=== PATIENT | female | born 1995 | race Asian ===

== ENCOUNTER 2024-01-14 19:51 | Emergency (ER) | payer BC, SELFPAY ==
[2024-01-14] VITALS (29 sets, daily range): BP systolic 94–133; BP diastolic 78–99; PULSE 75–98; RESP 10–26; TEMP 36.6; O2SAT 96–100
--- NOTE | 2024-01-14 20:15 | DI.CT_ITS ---
Exam(s) CT RENAL COLIC WO EXAM: CT RENAL COLIC WO CLINICAL HISTORY: right flank pain. TECHNIQUE: Imaging Protocol: Axial computed tomography images with coronal and sagittal reformatted images were created and reviewed CONTRAST MATERIAL: Intravenous: none Oral: None COMPARISON: No exams were available for comparison FINDINGS: VISUALIZED LUNG BASES: No nodules nor pleural effusions evident. ABDOMEN: There is no ascites. LIVER: There are no obvious focal hepatic lesions evident of this noninfused study. GALLBLADDER/BILIARY: No obvious gallbladder pathology. CBD is not dilated. PANCREAS: No evidence of pancreatic mass nor dilatation of the pancreatic duct. SPLEEN: Spleen is not enlarged. No obvious intrasplenic lesions. ADRENALS: There are no significant adrenal masses. KIDNEYS:There is bilateral nephrolithiasis. Multiple nonobstructing calculi are seen in the lower po le calyx of the left kidney. There is also a benign cyst in the lateral cortex of the left kidney me asuring 1.5 cm. No solid renal masses. In the opposite-right kidney there are multiple calculi also noted, most prominent in the lower half of the kidney especially inferior pole calyx. There is some perinephric stranding. There is a 2 millimeter calculus at the right ureterovesical junction. Ther e is larger 4 millimeter calcification of of this level in the distal right ureter. ABDOMINAL AORTA: Abdominal aorta is not enlarged. LYMPH NODES: There is no retroperitoneal nor paraaortic adenopathy. ABDOMINAL WALL: No evidence of significant anterior abdominal wall nor inguinal hernia. GI: There is no evidence of bowel obstruction, free air, nor abscess. PELVIS: LYMPH NODES: There is no intrapelvic nor inguinal adenopathy. GI: No evidence of appendicitis.No evidence of sigmoid diverticulitis. URINARY BLADDER: Calculus at the right ureterovesical junction measuring 2 mm. REPRODUCTIVE: Uterus and adnexal regions unremarkable. No free fluid OSSEOUS: No significant osseous lesions. No fractures. IMPRESSION: 1. There is bilateral nephrolithiasis. 2. There is mild right-sided hydronephrosis which is due to calculi in the lower right ureter measuri ng 2 and 4 mm, with the smaller calculus located at the right ureterovesical junction and larger calc ulus above this level in the lower right ureter. Mild dilatation of the right collecting system abov e this level as well as unilateral right perinephric stranding. There are no calculi in the left ure ter. RADIATION DOSE DELIVERED: Total DLP DATA REPOSITORY: All CT scans at this facility are submitted to the National Radiology Data Registry (NRDR) Dose Index Registry (DIR) with the [employer] [place] [employer] [employer] (ACR). RADIATION OPTIMIZATION: All CT scans at this facility use at least one of these dose optimization te chniques: automated exposure control; mA and/or kV adjustment per patient size (includes targeted exa ms where dose is matched to clinical indication); or iterative reconstruction.
[2024-01-14 20:27] LABS: Bilirubin Negative (Negative); Blood Moderate (Negative); Clarity Sl Cloudy (Clear); Glucose Negative (Negative); Ketones 40 mg/dL (Negative); Leukocyte Esterase Negative (Negative); Nitrite Positive (Negative); Specific Gravity 1.025 (1.005-1.025); Urobilinogen 0.2 mg/dL (Up to 0.2)
--- NOTE | 2024-01-14 20:31 | ED.GENADUL_ITS ---
Discharge Plan Disposition Condition: Serious Discharge Details Chief Complaint: Urinary Clinical Impression: Kidney stone, UTI (urinary tract infection) Primary Care Provider: Claudette,Local ED Provider: Denzel Diego Home Meds and New Rx's Prescriptions: No Action fexofenadine [Fannie Allergy] 60 mg tablet 60 mg PO DAILY HPI General Mode of arrival: ambulatory . Date/Time Provider Initiated Documentation: 01/14/24 19:52 . Limitations to Documentation: no limitations . Information obtained by: patient . History of Present Illness 28 year old F presents to the emergency department with the chief complaint of right flank pain, described as moderate, Quality is described as sharp, Patient reports no radiation. Patient started experiencing this hour(s) (4) and it has been constant. No relieving factors improve symptom(s), No exacerbating factors reported . Patient notes nausea/vomiting; denies chest pain and shortness of breath. Patient did receive the following treatments prior to arrival, none Related Data Home Medications ?Medication ?Instructions ?Recorded ?Confirmed fexofenadine 60 mg tablet (Fannie 60 mg PO DAILY 01/14/24 01/14/24 Allergy) Allergies Allergy/AdvReac Type Severity Reaction Status Date / Time Penicillins Allergy Severe Anaphylaxis Verified 01/14/24 20:07 General Stated Complaint: Urinary AGATHA: 3 Review of Systems All systems reviewed & are unremarkable except as noted in HPI and below Constitutional Constitutional: Denies chills, Denies fever(s) and Denies weakness Cardiovascular Cardiovascular: Denies chest pain and Denies dyspnea Respiratory Respiratory: Denies cough and Denies dyspnea Gastrointestinal Gastrointestinal: Reports nausea and Reports vomiting Genitourinary Genitourinary: Reports urinary urgency Musculoskeletal Musculoskeletal: Denies joint swelling Neurologic Neurologic: Denies weakness Exam Const Orientation: alert [facility] Head: normal to inspection Ears: external ears normal General nose exam: external nose normal Mouth: moist mucous membranes Eyes General: appearance normal, both eyes and all related structures Neck Neck: normal visual inspection Resp Effort & Inspection: normal respiratory effort and able to speak in complete sentences Cardio Rate: regular rate GI Palpation: soft and nontender General: No CVA tenderness Skin General skin exam: no rashes or lesions noted Neuro General: patient alert and patient oriented x3 Extrem General: normal to inspection Psych Mental Status: mental status grossly normal Course Vital Signs Vital signs: Vital Signs Temperature 36.6 C 01/14/24 20:04 Pulse 94 H 01/14/24 20:04 Respiratory Rate 20 01/14/24 20:04 Blood Pressure 133/99 H 01/14/24 20:04 Pulse Oximetry 100 01/14/24 20:04 Temperature 36.6 C 01/14/24 20:04 Temperature Source Temporal Artery Scan 01/14/24 20:04 Pulse 94 H 01/14/24 20:04 Respiratory Rate 20 01/14/24 20:04 Respiratory Effort Normal, Non-Labored 01/14/24 20:16 Blood Pressure 133/99 H 01/14/24 20:04 Blood Pressure Position Sitting 01/14/24 20:04 Pulse Oximetry 100 01/14/24 20:04 Oxygen Delivery Method Room Air 01/14/24 20:04 Oxygen Flow Rate 0 01/14/24 20:04 Pain Level 7 01/14/24 20:17 Lab/Test Results Lab/Test Results: Laboratory Tests Range/Units 01/14/24 20:09 WBC Cancelled RBC Cancelled Hgb Cancelled Hct Cancelled MCV Cancelled MCH Cancelled MCHC Cancelled RDW Cancelled Plt Count Cancelled MPV Cancelled Immature Gran % Cancelled Neutrophils % Cancelled Band Neutrophils % Cancelled Lymphocytes % Cancelled Atypical Lymphs % Cancelled Monocytes % Cancelled Eosinophils % Cancelled Basophils % Cancelled Metamyelocytes % Cancelled Myelocytes % Cancelled Promyelocytes % Cancelled Other Cells % Cancelled Nucleated RBC % Cancelled Absolute Neutrophils Cancelled Absolute Lymphocytes Cancelled Absolute Monocytes Cancelled Absolute Eosinophils Cancelled Absolute Basophils Cancelled RBC Morphology Cancelled Polychromasia Cancelled Hypochromasia Cancelled Poikilocytosis Cancelled Basophilic Stippling Cancelled Anisocytosis Cancelled Microcytosis Cancelled Macrocytosis Cancelled Spherocytes Cancelled Tear Drop Cells Cancelled Ovalocytes Cancelled Stomatocytes Cancelled [place] Bodies Cancelled Jd Cells/Echinocytes Cancelled Acanthocytes (Spur) Cancelled Schistocytes Cancelled Sodium Cancelled Potassium Cancelled Chloride Cancelled Carbon Dioxide Cancelled Anion Gap Cancelled BUN Cancelled Creatinine Cancelled Est GFR (CKD-EPI 2020) Cancelled Glucose Cancelled Calcium Cancelled Magnesium Cancelled Total Bilirubin Cancelled AST Cancelled ALT Cancelled Alkaline Phosphatase Cancelled Total Protein Cancelled Albumin Cancelled Lipase Cancelled POC- Test(urine) Negative Medical Decision Making 28-year-old female who states she has a history of kidney stones comes in with acute onset right flank pain starting around 4 PM and nausea vomiting. She has no fevers, has had some urinary urgency since this started. She denies any chest pain, difficulty breathing. She is very anxious on exam, she localizes the pain to the right oblique and states that intermittently radiates to the right lower abdomen. She has no abdominal tenderness currently and no CVA tenderness. Discussed with her that I would like to do blood work but she is adamantly against doing blood work currently she gets too anxious with blood draws needlesticks. Will trial p.o. ibuprofen and Zofran for her symptoms and also Ativan for anxiety. And obtain UA along with CT renal colic. Given lack of abdominal tenderness doubt IC such as appendicitis. Patient less anxious and pain is improved, she still some mild right lower oblique area discomfort. Her urine does show positive nitrates, she is well to do blood work now we will check a CBC a CMP and a procalcitonin and IV fluids. CT pending CT shows right perinephric stranding with hydronephrosis and 2 kidney stones 1 to 2 mm and 1 to 4 mm in the right distal ureter approximately 2 cm cephalad to the right UVJ. She is hemodynamically stable, discussed results with patient and given she has an infected stone so she needs to be hospitalized. Will see if Dr. Hannah is available to potentially help manage these if she doesn't pass them on her own Dr. 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 [place] if [place] have [place] pt signed out to oncoming provider pending [place] [facility] Differential Diagnosis Differential Diagnosis: kidney stone, uti Imaging Data Radiologic Study: Attestation: I personally reviewed and interpreted this imaging study as follows: Imaging: CT Scan Radiologist's impression: IMPRESSION: 1. Right perinephric stranding. Right hydronephrosis with closely- adjacent 2 mm and 4 mm calcified stones in the distal right ureter approximately 2 cm cephalad to the right UVJ. Additional third calcified stone (2 mm diameter) at the right UVJ. 2. Bilateral non-obstructing calcified renal stones. Lab Data Lab results reviewed: Yes I reviewed the patient's lab results. Quality:SDOH Health Related Social Needs: No Data to Display [facility] All Active Problems (Updated 01/14/24 @ 22:55 by Denzel Diego MD) UTI (urinary tract infection) (Acute) Kidney stone (Chronic) Social History Smoking/Tobacco Use Status: Never Smoking risk assessment performed?: Yes Alcohol Intake: never Drug use: Never Substance use type: does not use Housing: condominium Do you feel safe at home: Yes Do you feel safe in your relationship?: Yes
[2024-01-14 20:39] LABS: Bacteria Moderate HPF (Negative); C & S Indicated? No/Sq. Contamination; Casts Negative LPF (Negative); Crystals Negative HPF (Negative); Epithelial Cells Many HPF (Negative); Mucus Negative (Negative)
[2024-01-14] MEDS: Ondansetron O.D.T. 4 MG TABEF PO (20:41)
[2024-01-14] MEDS: LORazepam 1 MG TAB PO (20:41)
[2024-01-14] MEDS: Ibuprofen 600 MG TAB PO (20:41)
[2024-01-14 21:55] LABS: Abs Immature Grans 0.06 10^3/uL (0.0-0.06); Absolute Eosinophil Count 0.01 10^3/uL (0.0-0.7); Absolute Lymphocyte Count 0.25 10^3/uL (1.2-3.4); Absolute Neutrophil Count 13.16 10^3/uL (1.2-6.7); Basophils % 0.4 %; Eosinophils % 0.1 %; HGB 14.2 g/dL (11.2-15.7); Immature Grans % 0.4 %; Lymphocytes % 1.8 %; MCH 29.3 pg (27.0-33.0); MCHC 33.8 % (32.0-36.0); MCV 87 fL (80-95); MPV 9.7 fL (8.0-11.0); Monocytes % 2.2 %; Neutrophils % 95.1 %; Platelet Count 198 10^3/uL (130-400); RBC 4.85 10^6/uL (3.93-5.22); RDW 11.9 % (11.7-14.6); RDW-SD 37.8 fL; WBC 13.84 10^3/uL (4.4-10.8)
[2024-01-14 21:58] LABS: Absolute Basophil Count 0.06 10^3/uL (0.0-0.2)
[2024-01-14] MEDS: levoFLOXacin 750 MG/150 ML BAG 100 MG IVPB (21:58)
[2024-01-14] MEDS: Normal Saline 1,000 ML 1000 ML IV (21:59)
[2024-01-14 22:08] LABS: ALT 19 U/L (14-59); AST 16 U/L (15-37); Albumin 4.2 g/dL (3.4-5.0); Alkaline Phosphatase 80 U/L (46-116); Anion Gap 10.2 mmol/L (3-11); BUN 10 mg/dL (7-18); Bilirubin, Total 0.94 mg/dL (0.2-1.0); CO2 25.8 mmol/L (21.0-32.0); CREATININE 1.1 mg/dL (0.55-1.02); Calcium 9.2 mg/dL (8.5-10.1); Chloride 103 mmol/L (98-107); Estimated GFR 69.32 (mL/min/1.73m2); Glucose 111 mg/dL (74-106); Magnesium 1.6 mg/dL (1.8-2.4); Potassium 3.4 mmol/L (3.5-5.1); Sodium 139 mmol/L (136-145); Total Protein 7.7 g/dL (6.4-8.2)
[2024-01-14] MEDS: HYDROmorphone 2 MG/ML SYR 0.5 MG IVP (22:09)
[2024-01-14 22:24] LABS: Procalcitonin 7.8 ng/mL
--- NOTE | 2024-01-14 22:27 | DI.VRAD_ITS ---
PROCEDURE INFORMATION: Exam: CT Abdomen And Pelvis Without Contrast Exam date and time: 01/14/2024 9:21 PM Age: 28 years old Clinical indication: Right flank pain TECHNIQUE: Imaging protocol: Computed tomography of the abdomen and pelvis without contrast. COMPARISON: No relevant prior studies available. FINDINGS: Lungs: No acute infiltrate in either lung base. Liver: Normal. No mass. Gallbladder and biliary ducts: Normal. No calcified stones. No ductal dilation. Pancreas: Normal. No ductal dilation. Spleen: Normal. No splenomegaly. Adrenal glands: Normal. No mass. Kidneys and ureters: Right perinephric stranding. Right hydronephrosis with closely-adjacent 2 mm and 4 mm calcified stones in the distal right ureter approximately 2 cm cephalad to the right UVJ. Additional third calcified stone (2 mm diameter) at the right UVJ. Bilateral non-obstructing calcified renal stones. No left hydronephrosis. Lateral left renal cortical cyst. Stomach and bowel: Unremarkable. No obstruction. No mucosal thickening. Appendix: Normal appendix. Intraperitoneal space: No free air. No significant fluid collection. Vasculature: The abdominal aorta is normal in caliber without aneurysm. Lymph nodes: No enlarged lymph nodes. Urinary bladder: Unremarkable as visualized. Reproductive: Unremarkable as visualized. Bones/joints: Unremarkable. No acute fracture. Soft tissues: Small fat-containing umbilical hernia. IMPRESSION: 1. Right perinephric stranding. Right hydronephrosis with closely-adjacent 2 mm and 4 mm calcified stones in the distal right ureter approximately 2 cm cephalad to the right UVJ. Additional third calcified stone (2 mm diameter) at the right UVJ. 2. Bilateral non-obstructing calcified renal stones. Dictated and Authenticated by: Nikolai Sommers MD. Ordering:MELIDA Mahoney MD
--- NOTE | 2024-01-14 23:07 | W.EDPROG ---
Date of service: 01/14/24 Time of Service: 23:07 Medical Decision Making This patient was signed out to me. Please see previous notes for H&P and initial eval. in brief, 28yo previously healthy female presenting with flank pain. Workup suggestive of infected kidney stone; UA with 5-10 WBC +nitrates, WBC 13, procal elevated at 7.8, CT with right hydronephrosis and stones in distal right ureter. SIRS + with HR in 90's and elevated white count. Anaphalyxis to cephalasporins so started on levofloxacin. Signed out pending transfer, awaiting callback from [facility] [place] [place] (no urology at [facility] currently). Spoke with urology [facility] [place] [place] Dr. Mclean; pt accepted for transfer. Transferred via [facility]. Quality:[facility] Health Related Social Needs: No Data to Display Sign Out Sign Out Data: Sign Out Comment: infected kidney stone, hemodynamically stable. levofloxacin given, pending call back from [facility] [place] for potential transfer. Last updated by Denzel Diego MD at 01/14/24 23:06 Discharge Plan Disposition Patient Disposition: Transfer-Acute Inpatient Care Specific Acute In Facility: [facility] Condition: Serious Condition: Serious Discharge Details Chief Complaint: Urinary Clinical Impression: Kidney stone, UTI (urinary tract infection) Primary Care Provider: Claudette,Local ED Provider: Brianne Rodríguez Home Meds and New Rx's Prescriptions: No Action fexofenadine [Fannie Allergy] 60 mg tablet 60 mg PO DAILY
[2024-01-15] VITALS (32 sets, daily range): BP systolic 131–152; BP diastolic 86–103; PULSE 80–124; RESP 11–30
[2024-01-15] MEDS: HYDROmorphone 2 MG/ML SYR 0.5 MG IVP ×3 (00:16→03:15)
[2024-01-15] MEDS: Ondansetron 4 MG/2 ML VIAL IVP ×2 (00:16→03:15)
--- NOTE | 2024-01-17 08:08 | NUR.NOTE ---
Accessed Pt chart to see if Pt was prescribed any medical Nursing Note:
--- NOTE | 2024-01-17 08:10 | NUR.NOTE ---
Accessed Pt chart to see if Pt was prescribed any antibiotics during this visit. Realized Pt was transferred to [facility]. I faxed the specimen to [facility] so they can add it to the Pts chart.
== END 2024-01-15 03:21 | disposition short-term general hospital (02) ==
PROVIDERS: Emergency Medicine; Emergency Provider Student in an Organized Health Care Education/Training Program
DX: R10.31 Right lower quadrant pain (principal); N20.1 Calculus of ureter; R11.2 Nausea with vomiting, unspecified; R39.15 Urgency of urination; R30.0 Dysuria; N39.0 Urinary tract infection, site not specified; Z87.442 Personal history of urinary calculi
CPT/HCPCS: 00123; 36415; 80053; 81025; 83690; 84145; 96365; 96366; 96375; 96376; 99285; 74176; 81003; 81015; 83735; 85025; 87086; J1170; J1956; J2405

== ENCOUNTER 2024-02-02 12:26 | Day surgery (SDC) | payer BC, SELFPAY ==
[2024-02-02] VITALS (20 sets, daily range): BP systolic 98–129; BP diastolic 61–101; PULSE 75–109; RESP 13–22; TEMP 36–37.2; O2SAT 98–100; BMI 23.6
--- NOTE | 2024-02-02 14:03 | HPE_ITS ---
Date of service: 02/02/24 Time of Service: 14:04 Assessment and Plan Assessment and plan (1) Right distal ureteral calculus: Status: Acute Assessment and plan: We will plan for cystoscopy, removed her right ureteral stent, do a right retrograde pyelogram and then perform ureteroscopy and treatment of any remaining right ureteral stones. History of Present Illness History of Present Illness Chief Complaint: Right ureteral stones Narrative: This is a 28-year-old woman who does have a history of kidney stones. She passed a stone spontaneously about 10 years ago. She is not aware of a chemical analysis or composition of the stone. She presented to our emergency department about 2 weeks ago with an acute onset of right sided flank pain. She recalled that the pain was similar to her previous stone episode. She was seen in the emergency department and her CT sca n showed 2 distal right ureteral stones. Her urinalysis was concerning for an infection, so she was referred for an urgent stent that was placed at [facility]. Since that time, she has not had significant renal colic symptoms. She does have some stent discomfort with urinary frequency and urgency. She is not sure if she passed her stone. She is not having any fever or chills Her is here to help her while she is getting over this painful episode, but he is due to return to work in [place] next week. She is hoping that we may be able to address her ureteral stones sooner than later. There was a plan from the urology team at [facility] to perform ureteroscopy about 2 to 4 weeks after her stent placement, but she has not heard from them yet. She has no known metabolic issues such as gout or hyperparathyroidism. She has no known bleeding disorders. She has done well with anesthesia in the past. She believes she may have passed her stone since being seen in the office Review of Systems Narrative: No fevers or chills No vision change or dysphasia No diabetes or thyroid No shortness of breath, cough or hemoptysis No chest pain or palpitations No nausea, vomiting, hepatitis, ulcers, jaundice No seizures, strokes or peripheral neuropathy No bleeding disorders or anemia No gout PFSH All Active Problems (Updated 02/02/24 @ 13:41 by Codie Golden) Severe needle phobia (Acute) Right distal ureteral calculus (Acute) UTI (urinary tract infection) (Acute) Kidney stone (Chronic) Surgical History (Updated 02/02/24 @ 13:25 by Codie Golden) S/P [place]oscopy with ureteral stent [place] [facility] Social History Smoking/Tobacco Use Status: Never Smoking risk assessment performed?: Yes Alcohol Intake: never Drug use: Never Substance use type: does not use Housing: condominium Additional Social history: Unable to assess privately Meds Allergies and Home Medications Allergies Allergy/AdvReac Type Severity Reaction Status Date / Time Penicillins Allergy Severe Anaphylaxis Verified 01/31/24 10:53 Home Medications ?Medication ?Instructions ?Recorded ?Confirmed ?Type fexofenadine 60 mg tablet (Fannie 60 mg PO DAILY 01/14/24 02/02/24 History Allergy) alprazolam 0.25 mg tablet (Xanax) 0.25 - 0.5 mg (1 - 2 x 0.25 mg) PO 01/30/24 02/02/24 Rx TID PRN anxiety #12 tabs tamsulosin 0.4 mg capsule (Flomax) 0.4 mg PO QHS 01/31/24 02/02/24 History Exam Const General: cooperative, comfortable and anxious Neck Neck: supple Resp Effort & Inspection: normal respiratory effort Auscultation: clear to auscultation bilaterally Cardio Rate: regular rate Rhythm: regular rhythm GI Palpation: soft and no masses Neuro General: patient alert, patient awake and patient oriented x3 Results Last Vital Signs Temp 37.2 C 02/02/24 12:35 Pulse 109 H 02/02/24 12:35 Resp 16 02/02/24 12:35 BP 129/101 H 02/02/24 12:35 Pulse Ox 99 02/02/24 12:35 Time Spent Time spent with Patient: <40 minutes Time was spent: other
--- NOTE | 2024-02-02 14:18 | W.ANESPRE ---
General Info Date of Service Date Performed: 02/02/24 Height: 5 ft 3 in Weight: 60.6 kg Body Mass Index (BMI): 23.6 Surgical Procedure: Operation Date: 02/02/24 13:55 Proposed Procedure Side Surgeon p Cystoscopy/Possible Laser/Retrograde/Ureteroscopy/Stent Removal/Possible Stent Placement Right Houston Patino MD Meds Allergies and Home Medications Allergies Allergy/AdvReac Type Severity Reaction Status Date / Time Penicillins Allergy Severe Anaphylaxis Verified 01/31/24 10:53 Home Medication ?Medication ?Instructions ?Recorded fexofenadine 60 mg tablet (Fannie 60 mg PO DAILY 01/14/24 Allergy) alprazolam 0.25 mg tablet (Xanax) 0.25 - 0.5 mg (1 - 2 x 0.25 mg) PO 01/30/24 TID PRN anxiety #12 tabs tamsulosin 0.4 mg capsule (Flomax) 0.4 mg PO QHS 01/31/24 Current Visit Medications: Current Medications Generic Name Dose Route Start Last Admin Trade Name Freq PRN Reason Stop Dose Admin Ringer's Solution 1,000 mls @ 80 mls/hr 02/02/24 06:00 IV 03/02/24 23:59 INFUSION BRIDGET Ciprofloxacin 400 mg in 200 mls @ 200 mls/hr 02/02/24 06:00 Cipro I.V. 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 Right distal ureteral calculus Acute N20.1 UTI (urinary tract infection) Acute N39.0 Kidney stone Chronic N20.0 Surgical History Surgical History (Updated 02/02/24 @ 13:25 by Codie Golden) S/P cystoscopy with ureteral stent placement 7/21 [facility] [place] Hx of wisdom tooth extraction Tobacco Smoking/Tobacco Use Status: Never Alcohol Alcohol Intake: never Substance Use Substance use: Never Substance use type: does not use Vital Signs and Lab Results Vital Signs Most Recent Vital Signs in EMR: Most Recent Vital Signs Temp Pulse Resp BP Pulse Ox 37.2 C 109 H 16 129/101 H 99 02/02/24 12:35 02/02/24 12:35 02/02/24 12:35 02/02/24 12:35 02/02/24 12:35 Point of Care Results Point of Care Results: POC- Test(urine) Negative 02/02/24 14:16 Lab Results Blood Type / Crossmatch: No Data to Display Complete Blood Count: White Blood Count 13.84 10^3/uL (4.4-10.8) H 01/14/24 21:47 Red Blood Count 4.85 10^6/uL (3.93-5.22) 01/14/24 21:47 Hemoglobin 14.2 g/dL (11.2-15.7) 01/14/24 21:47 Hematocrit 42.0 % (36.0-46.0) 01/14/24 21:47 Platelet Count 198 10^3/uL (130-400) 01/14/24 21:47 Complete Metabolic Panel: Sodium 139 mmol/L (136-145) 01/14/24 21:47 Potassium 3.4 mmol/L (3.5-5.1) L 01/14/24 21:47 Chloride 103 mmol/L (98-107) 01/14/24 21:47 Carbon Dioxide 25.8 mmol/L (21.0-32.0) 01/14/24 21:47 BUN 10 mg/dL (7-18) 01/14/24 21:47 Creatinine 1.1 mg/dL (0.55-1.02) H 01/14/24 21:47 Est GFR (CKD-EPI 2020) 69.32 (mL/min/1.73m2) 01/14/24 21:47 Magnesium 1.6 mg/dL (1.8-2.4) L 01/14/24 21:47 Calcium 9.2 mg/dL (8.5-10.1) 01/14/24 21:47 Albumin 4.2 g/dL (3.4-5.0) 01/14/24 21:47 Glucose 111 mg/dL (74-106) H 01/14/24 21:47 Liver Function Panel: Alanine Aminotransferase (ALT/SGPT) 19 U/L (14-59) 01/14/24 21:47 Aspartate Amino Transf (AST/SGOT) 16 U/L (15-37) 01/14/24 21:47 Coagulation Panel: No Data to Display Cardiac Panel: No Data to Display Arterial Blood Gas: No Data to Display Venous Blood Gas: No Data to Display Pancreas Panel: No Data to Display Thyroid Panel: No Data to Display Infectious Disease: No Data to Display Blood Cultures: No Data to Display Toxicology Panel: No Data to Display Panel: No Data to Display Anesthesia Assessment and Plan Anesthesia History Personal History: No History of Anesthesia Complications Family History: No Family History of Anesthesia Complications Exercise Tolerance Exercise Tolerance: Metabolic Equivalents>4 Pertinent Negatives Pertinent Negatives: No Symptoms of GERD Cardiac & Pulmonary Exam Cardiac Exam: Normal S1/S2 Heart Sounds Pulmonary Exam: Clear Bilateral Breath Sounds Implantable Cardiac Device Does patient have a Pacemaker or an ICD?: No Airway Exam Known Difficult Airway: No Mallampati Class: 2 Mouth Opening: Normal (> 3cm) Thyromental Distance: Greater than 3 cm Neck Range of Motion: Full ROM Neck Circumference: Normal Teeth Condition: Normal Dentition ASA Classification ASA Score: ASA 2 Emergency Case?: No NPO Status NPO Status: NPO Clears >2 hours, Solids >8 hours Status Status: Negative HCG Anesthesia Plan Resuscitation Status: Full Code Anesthesia Technique: General Anesthesia Airway Planned: LMA Monitors Used: Standard Monitors Preoperative Comments:: Mask induction, PIV after asleep d/t severe anxiety from needlesGarland Wheeler CRNA
--- NOTE | 2024-02-02 14:46 | ROE_ITS ---
Date of service: 02/02/24 Time of Service: 15:52 Operative Note Operative Note DATE OF PROCEDURE: 02/02/24 PRE-OP DIAGNOSIS: Right ureteral stones POST-OP DIAGNOSIS: same PROCEDURE: cystoscopy, remove right ureteral stent, right retrograde pyelogram, right ureteroscopy SURGEON: Houston Patino ANESTHESIA TYPE: Local By Surgeon and General LMA/ETT Refer to Anesthesia Record ESTIMATED BLOOD LOSS: 5 PATHOLOGY: none sent COMPLICATIONS: None Patient was transported to: PACU Patient's condition: stable Implants: none Indications: This is a 28-year-old woman who recently presented to the emergency department with renal colic. She is found to have a right distal ureteral stone and evidence of a urinary tract infection. She underwent emergent stent placement. She presents now for stent removal and possible ureteroscopy and holmium laser lithotripsy of her stone. She indicates that she passed something in the urine just about 2 days ago and wonders if her stone is still present or not. Findings: No abnormalities on retrograde pyelogram No stones seen on ureteroscopy up to the renal pelvis Procedure Description: The patient was brought to the operating room on 02/02/2020 for. She was given preoperative IV antibiotics. After successful induction of general anesthesia, she was placed in the dorsal lithotomy position. Her genitalia was prepped and draped with Betadine. 2% Xylocaine jelly was instilled into the urethra to act as a local anesthetic. A 22 [place] rigid cystoscope was passed through the urethra into the bladder. The bladder was inspected using a 30 degree lens. There was a stent protruding from the right ureteral orifice. There is quite a bit of edema surrounding the orifice. No stones were seen within the lumen of the bladder. The stent was grasped with an alligator forceps and brought out to the level of the urethral meatus. A guidewire was advanced through the lumen of the stent and the stent was removed leaving the wire in place. The 5 [place] access cath eter was advanced over the wire and the catheter was positioned in the distal ureter. The wire was removed and a retrograde pyelogram was obtained by injecting Omnipaque through the access catheter under fluoroscopic guidance. No filling defects were seen up to the level of the pelvic brim. I then reinserted the guidewire and removed the access catheter. I passed a semirigid ureteroscope through the urethra, into the bladder and followed the guidewire up the ureter to the level of the renal pelvis. No stones were seen along the course of the ureter. The scope was then removed. The wire was removed under fluoroscopic guidance. It is expected that the patient did indeed pass her stones. With no stone manipulation performed, we elected not to replace her ureteral stent. The patient tolerated the procedure well with no complications.
[2024-02-02] MEDS: CIPROFLOXACIN 400 MG/200 ML BAG 80 MG IVPB (15:03)
[2024-02-02] MEDS: Lidocaine 2% Jelly 6 ML SYR (15:10)
[2024-02-02] MEDS: Omnipaque 300 MG/ML 50 ML BTL (15:15)
[2024-02-02] MEDS: Lactated Ringers 1,000 ML 80 ML IV (15:23)
--- NOTE | 2024-02-02 15:37 | W.PM.DSUDISC ---
Date of service: 02/02/24 Time of Service: 15:37 Discharge Plan Disposition Patient Disposition: Home Condition: Stable Discharge Details Reason For Visit: cystoscopy Attending Provider: Houston Patino Primary Care Provider: Claudette,Local Home Meds and New Rx's Prescriptions: New ketorolac 10 mg tablet 10 mg PO Q6H PRN (Reason: pain) Qty: 12 0RF Rx Instructions: maximum total duration of 5 days from all oral, intranasal, or parenteral formulations No Action alprazolam [Xanax] 0.25 mg tablet 0.25 - 0.5 mg PO TID PRN (Reason: anxiety) Qty: 12 0RF Patient Comments: 0.5mg taken fexofenadine [Fannie Allergy] 60 mg tablet 60 mg PO DAILY tamsulosin [Flomax] 0.4 mg capsule 0.4 mg PO QHS Discharge Instructions Additional Instructions: no need to strain urine take dose of ketorolac before bedtime tonight, the as needed starting tomorrow take one additional dose of tamsulosin then discontinue followup 6 to 8 weeks for renal US in office Activity:: Activity as Tolerated Diet:: As Tolerated Discharge Orders Discharge Orders: Discharge Order (Routine); Ordered 02/02/24 Ordered By: Houston Patino DS: Diagnosis Discharge Diagnosis (1) Right distal ureteral calculus: Status: Acute
--- NOTE | 2024-02-02 15:39 | DI.RAD_ITS ---
Exam(s) XR RETROGRADE IN OR EXAM: XR RETROGRADE IN OR CLINICAL HISTORY: Renal calculi. TECHNIQUE: Fluoroscopy was provided for the referring physician for guidance with performing retrogr rishi procedure. COMPARISON: No exams were available for comparison FINDINGS: Please see procedure note for details. Fluoro time: 23.3 seconds RADIATION DOSE DELIVERED: lily Strickland=4.23 mGy
--- NOTE | 2024-02-02 15:58 | W.ANESPOSTOP ---
Postoperative Evaluation Date, Time and Location Date Performed: 02/02/24 Time Performed: 15:58 Patient Location: PACU Vital Signs Most Recent Imported Vital Signs: Most Recent Vital Signs Temp Pulse Resp BP Pulse Ox 36.4 C L 75 19 98/61 L 99 02/02/24 15:39 02/02/24 15:50 02/02/24 15:51 02/02/24 15:50 02/02/24 15:51 Pain Score Most Recent Pain Score: Most Recent Pain Score Pain Level 2 02/02/24 12:35 Assessment Mental Status: Awake (Alert & Oriented to Patient Baseline) Airway and Respiratory Function: Patent airway with normal (patient baseline) respiratory exam Cardiovascular Function: Hemodynamically Stable Hydration Status: Adequately Hydrated Nausea & Vomiting: No Nausea or Vomiting Pain: Pt. Denies Any Pain Peripheral Nerve Block: Patient did not receive a nerve block
[2024-02-02] MEDS: Phenazopyridine 200 MG TAB PO (17:04)
== END 2024-02-02 17:45 | disposition home or self-care (01) ==
PROVIDERS: Visit Provider Urology
PROC: (CPT 52005; principal; 2024-02-02 13:45)
DX: N20.1 Calculus of ureter (principal)
CPT/HCPCS: 52005; 81025; 74420; J0131; J0744; J1100; J1885; J2250; J2405; J2704; Q9967